=== PATIENT | male | born 1995 | race Caucasian/White ===

== ENCOUNTER 2017-05-21 12:09 | Emergency (ER) | payer OTHER ==
[~2017-05-21] VITALS: Ht 193 cm; Wt 97.7 kg
[2017-05-21 14:52] VITALS: BP 127/70
== END 2017-05-21 15:13 | disposition home or self-care (01) ==
LOC: M ED 12:09
DX: S61.101A Unspecified open wound of right thumb with damage to nail, initial encounter (principal); W26.8XXA Contact with other sharp object(s), not elsewhere classified, initial encounter; Y92.099 Unspecified place in other non-institutional residence as the place of occurrence of the external cause; Y93.9 Activity, unspecified; Y99.9 Unspecified external cause status